=== PATIENT | female | born 1950 | race African-American/Black ===

== ENCOUNTER 2016-10-05 00:08 | Emergency (ER) | payer OTHER, MEDICAID ==
[~2016-10-05] VITALS: Ht 157.5 cm; Wt 44.0 kg
[~2016-10-05 00:08] MED LIST: ATEN-42 PO; LISI-604 PO
[2016-10-05 00:36] VITALS: BP 155/82
[2016-10-05] MEDS ORDERED: SODIUM CHLORIDE 0.9% 1,000 ML IV ONE (00:48)
[2016-10-05 01:09] LABS: BASOPHILS % 0.8 % (0.0-2.0); EOSINOPHILS % 2.5 % (0.0-5.0); HEMATOCRIT. 32.1 % (36.0-48.0); HEMOGLOBIN. 10.8 g/dL (12.0-16.0); LYMPHOCYTES % 50.8 % (20.0-50.0); MEAN CORPUSCULAR VOLUME 92.3 fL (81.0-99.0); MEAN PLATELET VOLUME 8.8 fl (7.4-10.4); MONOCYTES % 8.2 % (2.0-8.0); NEUTROPHILS % 37.7 % (40.0-76.0); PLATELET 193 x1000/uL (130-400); RED BLOOD CELL COUNT 3.47 mill/uL (4.2-5.4); RED CELL DISTRIBUTION WIDTH 13.3 % (11.6-14.6)
[2016-10-05 01:11] LABS: CHLORIDE 97 mEq/L (98-107)
[2016-10-05 01:20] LABS: CARBON DIOXIDE 29 mEq/L (21-32); PHOSPHORUS 3.2 mg/dL (2.5-4.9)
[2016-10-05 01:34] LABS: D-DIMER 1.49 mg/L FEU (<0.50); INR 1.1
[2016-10-05] MEDS ORDERED: SODIUM CHLORIDE 0.9% 10ML VIAL ONE (08:52)
[2016-10-05] MEDS ORDERED: IOHEXOL-350 100 ML BOTTLE ONE (08:52)
== END 2016-10-05 03:38 | disposition home or self-care (01) ==
LOC: ER 00:08
DX: R00.2 Palpitations (principal); I10 Essential (primary) hypertension; Z79.899 Other long term (current) drug therapy
CPT/HCPCS: 36415; 71010; 71275; 80053; 83735; 84100; 85025; 85379; 85610; 93005; 96360; 96361; 99285; A4216; J7030; Q9967

== ENCOUNTER 2017-07-20 14:15 | Emergency (ER) | payer OTHER, MEDICAID ==
[~2017-07-20] VITALS: Ht 157.5 cm; Wt 42.0 kg
[2017-07-20 15:23] LABS: BASOPHILS % 0.7 % (0.0-2.0); EOSINOPHILS % 1.3 % (0.0-5.0); HEMATOCRIT. 31.3 % (36.0-48.0); HEMOGLOBIN. 10.4 g/dL (12.0-16.0); LYMPHOCYTES % 34.1 % (20.0-50.0); MEAN CORPUSCULAR HEMOGLOBIN 30.9 pg (28.0-32.0); MEAN CORPUSCULAR VOLUME 93.3 fL (81.0-99.0); MEAN PLATELET VOLUME 8.9 fl (7.4-10.4); MONOCYTES % 7.7 % (2.0-8.0); NEUTROPHILS % 56.2 % (40.0-76.0); PLATELET 217 x1000/uL (130-400); RED BLOOD CELL COUNT 3.35 mill/uL (4.2-5.4); RED CELL DISTRIBUTION WIDTH 12.7 % (11.6-14.6)
[2017-07-20 15:28] LABS: CHLORIDE 95 mEq/L (98-107)
[2017-07-20 15:29] LABS: D-DIMER 0.56 mg/L FEU (<0.50); INR 1.1
[2017-07-20 15:30] LABS: ETHANOL BLOOD < 10 mg/dL
[2017-07-20 15:32] LABS: AMMONIA < 25 uMol/L (<32)
[2017-07-20 15:34] LABS: CREATINE KINASE 135 IU/L (26-192)
[2017-07-20] MEDS ORDERED: SODIUM CHLORIDE 0.9% 500 ML IV ONE (15:35)
[2017-07-20 15:37] LABS: CARBAMAZEPINE < 0.5 ug/mL (4-12); PHENOBARBITAL < 2.1 ug/mL (15.0-40.0); VALPROIC ACID < 3.0 ug/mL (50-100)
[2017-07-20 17:58] VITALS: BP 132/81
== END 2017-07-20 19:08 | disposition home or self-care (01) ==
LOC: EDBEDREQ 15:22 → ER 18:51 → CANBEDREQ 19:20
DX: R53.1 Weakness (principal); J02.9 Acute pharyngitis, unspecified; E86.0 Dehydration; J32.9 Chronic sinusitis, unspecified; I10 Essential (primary) hypertension; Z98.51 Tubal ligation status
CPT/HCPCS: 36415; 70450; 80053; 80156; 80165; 80184; 80185; 82140; 82550; 83880; 84443; 84484; 85025; 85379; 85610; 93005; 96360; 96361; 99285; G0482; J7040